=== PATIENT | female | born 1955 | race Caucasian/White ===

== ENCOUNTER 2024-01-13 06:23 | Day surgery (SDC) | payer MEDICARE, SELFPAY ==
[2024-01-02 14:08] VITALS: BMI 35.2
[2024-01-13] VITALS (9 sets, daily range): BP systolic 135–161; BP diastolic 71–102; BMI 35.2
[2024-01-13] MEDS: TYLENOL 1000 MG PO (13:10)
[2024-01-13] MEDS: NORMOSOL-R 1000 IV (13:19)
--- NOTE | 2024-01-13 14:36 | HP.FOC2 ---
Focused History & Physical
Chief Complaint
HPI:
Chief Complaint: Postprandial right upper quadrant abdominal pain
HPI / Indication for Planned Procedure: Patient is a 68-year-old female recently seen in outpatient surgical evaluation secondary to suspected symptomatic cholelithiasis. She has been undergoing surveillance of liver cyst for a few years now and
she has had a known history of gallstones initially discovered incidentally. She has been now experiencing recurrent bouts of postprandial right upper quadrant abdominal pain just off to the right of midline. They are typically triggered by
richer, fatty foods. Ultrasound confirmed cholelithiasis. 4.9 cm right hepatic cyst adjacent to the gallbladder neck as well.
Relevant Past Medical History: Bleeding Disorder and Other (Osteopenia, hypercholesterolemia, plantar fasciitis)
Relevant Social History: Negative
Relevant Family History: Negative
Relevant Past Surgical History: Positive for (Right rotator cuff, acromioplasty, lipoma excisions, right middle finger extensor tendon surgery, tubal, appendectomy, left Achilles)
Review of Systems
Review of Pertinent Systems: All Systems Negative
Medication
See Medication form for detailed medications: Yes
Medication List (including Herbals & OTC):
albuterol sulfate 90 mcg/actuation aerosol inhaler (ProAir HFA) 2 puff inhalation Q6H PRN sob, smoke 01/09/24
calcium 600 mg capsule 1,200 mg PO DAILY 01/09/24
cholecalciferol (vitamin D3) 25 mcg (1,000 unit) capsule (Vitamin D3) 25 mcg PO DAILY 01/09/24
denosumab 60 mg/mL subcutaneous syringe (Prolia) 60 mg SC [id number] 01/09/24
fexofenadine-pseudoephedrine ER 180 mg-240 mg tablet,ext.release 24 hr (Nancy-D 24 Hour) 1 tab PO DAILY PRN allergies 01/09/24
fluticasone propionate 50 mcg/actuation nasal spray,suspension 2 spray intranasal DAILY PRN congestion 01/09/24
multivitamin 1 tab PO DAILY 01/09/24
rosuvastatin 5 mg tablet 5 mg PO DAILY 01/09/24
meloxicam 15 mg tablet 15 mg PO DAILY PRN pain 01/13/24
Medications Reviewed: Yes
Allergies and Reactions
Patient has Allergies: Yes
Noted Allergies and Reactions:
Allergy/AdvReac Type Severity Reaction Status Date / Time
[place] Allergy Nausea / Verified 01/13/24 13:04
Vomiting
cigarette smoke Allergy ASTHMA Verified 01/13/24 13:04
clavulanic acid Allergy n/v, rash Verified 01/13/24 13:04
copper Allergy skin Verified 01/13/24 13:04
irritation
Pertinent Physical Exam
All Other Systems: Negative
Head/Neck: Normal
Lungs: Normal
Heart: Normal
Abdomen: Normal
Extremities: Normal
Neurological: Normal
Diagnosis / Assessment
68-year-old female presenting for symptomatic cholelithiasis with scheduled laparoscopic cholecystectomy possible fenestration of liver cyst pending its proximity to the gallbladder
Plan / Procedure
Laparoscopic cholecystectomy with possible laparoscopic fenestration of liver cyst
Anesthesia/Sedation to be done by Anesthesia Provider: Yes
--- NOTE | 2024-01-13 14:39 | W.SUR.PREOP ---
Pre-Operative Surgical Note
-
I have examined this patient prior to the performance of the scheduled procedure.
The patient's condition is unchanged from the time of the current History and
Physical and the patient is able to undergo the scheduled procedure.
--- NOTE | 2024-01-13 16:08 | W.IMMPOSTOP ---
Addendum entered and electronically signed by Vinayak Hou MD 01/15/24 07:18:
#[id number]
Original Note:
Surgical Immed Post Op Note
-
Primary Surgeon: Ameya
Assisting Surgeon: Maryan PARTIDA
Pre-op Diagnosis: Symptomatic cholelithiasis, liver cyst
Post-op Diagnosis: Symptomatic cholelithiasis, liver cyst
Procedure Performed: Laparoscopic cholecystectomy, laparoscopic fenestration liver cyst
Anesthesia Type: GETA +0.25% Marcaine
Specimen / Cultures: Gallbladder, portion of liver cyst wall
Estimated Blood Loss: 20 mL
Complications: None immediate
Operative Findings: Gallbladder with stones. No adhesions. Cystic duct and artery individually identified and controlled with hemoclips. Large liver cyst right hepatic lobe immediately adjacent to gallbladder with thin lining anteriorly; 6 cm
diameter
. Widely fenestrated along anterior wall with anterior wall excision. Partially cauterized cyst wall lining along the superior and more superficial aspects but not centrally as may be more adjacent to portal structures. Surgiflo applied to
internal lining and region of cauterization.
[2024-01-13] MEDS: SUBLIMAZE 50 MCG IV ×3 (16:23→16:48)
[2024-01-13] MEDS: SUBLIMAZE 25 MCG IV (17:13)
[2024-01-13] MEDS: ROXICODONE 5 MG PO (17:57)
== END 2024-01-13 19:06 | disposition home or self-care (01) ==
LOC: SDS 06:23
PROVIDERS: ATTENDING PHYSICIAN Surgery; FAMILY PHYSICIAN Student in an Organized Health Care Education/Training Program
DX: K80.20 Calculus of gallbladder without cholecystitis without obstruction (principal); K80.10 Calculus of gallbladder with chronic cholecystitis without obstruction; K76.89 Other specified diseases of liver
CPT/HCPCS: 47562; 88304; 36415; 93005

== ENCOUNTER → 2024-05-19 12:49 | Outpatient (REF) | payer MEDICARE, SELFPAY | LOC: WDC 12:49 | PROVIDERS: ATTENDING PHYSICIAN Obstetrics & Gynecology | DX: Z12.31 Encounter for screening mammogram for malignant neoplasm of breast (principal) | CPT/HCPCS: 77063; 77067 ==

== ENCOUNTER → 2025-02-02 08:17 | Outpatient (REF) | payer MEDICARE, SELFPAY | LOC: RAD 08:17 | PROVIDERS: ATTENDING PHYSICIAN Student in an Organized Health Care Education/Training Program; FAMILY PHYSICIAN Internal Medicine Rheumatology | DX: M81.0 Age-related osteoporosis without current pathological fracture (principal) | CPT/HCPCS: 77080 ==

== ENCOUNTER → 2025-05-25 07:49 | Outpatient (REF) | payer MEDICARE, SELFPAY | LOC: WDC 07:49 | PROVIDERS: ATTENDING PHYSICIAN Obstetrics & Gynecology; FAMILY PHYSICIAN Student in an Organized Health Care Education/Training Program | DX: Z12.31 Encounter for screening mammogram for malignant neoplasm of breast (principal) | CPT/HCPCS: 77063; 77067 ==